=== PATIENT | male | born 2000 | race American Indian/Alaskan Native ===

== ENCOUNTER 2019-08-31 22:44 | Emergency (ER) | payer OTHER ==
[2019-09-01] MEDS ORDERED: SODIUM CHLORIDE 0.9% 1000 ML 1,000 ML IV ONE (00:07)
--- NOTE | 2019-09-01 00:17 | Emergency Department Report ---
ED Seizure HPI - General Chief Complaint: Seizure Stated Complaint: SEIZURE Time Seen by Provider: 09/01/19 00:07 Source: family, EMS Mode of arrival: Stretcher Limitations: No Limitations - History of Present Illness Initial Comments: Bertha is a 19-year-old male with history of depression who presents with seizure activity at home. Today he started new medication Wellbutrin XL. This medication was prescribed to him by his [facility] physician on [facility]. Mother heard a thump. When she came into his room, she discovered Bertha to be on the ground with blood coming from his mouth and eyes closed shaking his extremities. The seizure lasted 30 seconds. He denies any pain at this time. No previous history of seizure. MD Complaint: possible seizure -: This evening Description of Episode: loss of consciousness -: second(s) (30) Witnessed:: Yes Trauma: No Seizure History: none Place: home Possible Precipitating Event: medication (Wellbutrin) Associated Symptoms: denies other symptoms Treatments Prior to Arrival: none - Related Data Allergies Allergy/AdvReac Type Severity Reaction Status Date / Time No Known Allergies Allergy Unverified 08/31/19 23:13 ED Review of Systems ROS: Stated complaint: SEIZURE Other details as noted in HPI Comment: All other systems reviewed and negative Constitutional: denies: fever, malaise Respiratory: denies: cough Cardiovascular: denies: chest pain Gastrointestinal: denies: abdominal pain, nausea, vomiting Neurological: denies: headache ED Past Medical Hx - Past Medical History Previous Medical History?: Yes Additional medical history: depression - Surgical History Past Surgical History?: No - Social History Smoking Status: Never Smoker Substance Use Type: None ED Physical Exam - General Limitations: No Limitations General appearance: alert, in no apparent distress, other (GCS 15) - Head Head exam: Present: atraumatic, normocephalic - Eye Eye exam: Present: normal appearance - ENT ENT exam: Present: mucous membranes moist - Neck Neck exam: Present: normal inspection, full ROM. Absent: tenderness, meningismus - Respiratory Respiratory exam: Present: normal lung sounds bilaterally. Absent: respiratory distress, wheezes, rales, rhonchi - Cardiovascular Cardiovascular Exam: Present: regular rate, normal rhythm, normal heart sounds. Absent: systolic murmur, diastolic murmur, rubs, gallop - GI/Abdominal GI/Abdominal exam: Present: soft, normal bowel sounds. Absent: distended, tenderness, guarding, rebound - Rectal Rectal exam: Present: deferred - Extremities Exam Extremities exam: Present: normal inspection - Back Exam Back exam: Present: normal inspection - Neurological Exam Neurological exam: Present: alert, oriented X3, CN II-XII intact, normal gait. Absent: motor sensory deficit - Expanded Neurological Exam Expanded Patient oriented to: Present: person, place, time Speech: Present: fluid speech Cranial nerves: EOM's Intact: Normal, Gag Reflex: Normal Cerebellar function: Finger to Nose: Normal Upper motor neuron: George Neglect: Normal Sensory exam: Upper Extremity Light Touch: Normal Motor strength exam: RUE: 5, LUE: 5, RLE: 5, LLE: 5 Best Eye Response ([place]): (4) open spontaneously Best Motor Response ([place]): (6) obeys commands Best Verbal Response ([place]): (5) oriented [place] Total: 15 - Psychiatric Psychiatric exam: Present: depressed, flat affect. Absent: homicidal ideation, suicidal ideation - Skin Skin exam: Present: warm, dry, intact, normal color. Absent: rash ED Course Vital Signs 08/31/19 23:10 Temperature 98.2 F Pulse Rate 117 H Respiratory 18 Rate Blood Pressure 146/91 [Left] O2 Sat by Pulse 100 Oximetry ED Medical Decision Making - Lab Data Result diagrams: 09/01/19 00:31 09/01/19 00:31 Laboratory Results - last 24 hr 09/01/19 09/01/19 09/01/19 00:31 00:31 00:31 WBC 11.1 H RBC 5.82 H Hgb 15.4 H Hct 48.8 H MCV 84 MCH 27 L MCHC 32 RDW 14.0 Plt Count 249 Lymph % (Auto) 11.8 L [place] % (Auto) 6.3 Eos % (Auto) 0.0 Baso % (Auto) 0.2 Lymph # 1.3 Mineral # 0.7 Eos # 0.0 Baso # 0.0 Seg Neutrophils % 81.7 H Seg Neutrophils # 9.1 H Sodium 140 Potassium 4.2 Chloride 101.0 Carbon Dioxide 24 Anion Gap 19 BUN 8 L Creatinine 1.0 Estimated GFR > 60 BUN/Creatinine Ratio 8 Glucose 90 Calcium 9.9 Total Bilirubin 0.30 AST 19 ALT 15 Alkaline Phosphatase 80 Total Protein 7.9 Albumin 4.9 Albumin/Globulin Ratio 1.6 Salicylates < 0.3 L Acetaminophen Plasma/Serum Alcohol 09/01/19 09/01/19 00:31 00:31 WBC RBC Hgb Hct MCV MCH MCHC RDW Plt Count Lymph % (Auto) Mineral % (Auto) Eos % (Auto) Baso % (Auto) Lymph # Mineral # Eos # Baso # Seg Neutrophils % Seg Neutrophils # Sodium Potassium Chloride Carbon Dioxide Anion Gap BUN Creatinine Estimated GFR BUN/Creatinine Ratio Glucose Calcium Total Bilirubin AST ALT Alkaline Phosphatase Total Protein Albumin Albumin/Globulin Ratio Salicylates Acetaminophen < 5.0 L Plasma/Serum Alcohol < 0.01 - EKG Data 09/01/19 00:22 EKG obtained 0018 Sinus tachycardia 100 bpm normal axis normal intervals no ST-T signs ischemia right bundle branch block pattern - Radiology Data Radiology results: report reviewed CT head without acute intracranial abnormality according to radiologist's impression - Medical Decision Making Bertha presents with possible first-time seizure. Upon literature review, seizure can occur with treatment doses and overdose of buproprion. I have asked Bertha if he intentionally overdose on the medication, he denies. Currently denies any suicidal homicidal ideation. I have examined the bottle of Wellbutrin which was filled today. Mother provided Bertha with his one dose of medication today at 3 PM. I have reviewed labs. Labs are within normal limits. Slight elevation of white blood cell count is to be expected with demarginalization in this setting. Prior to the seizure he was in his normal state of health today. He and his mother were both given seizure precautions. He was restricted to contact his [facility] physician today for further follow-up and neurology referral. I have advised to stop taking the medication Wellbutrin. Critical care attestation.: If time is entered above; I have spent that time in minutes in the direct care of this critically ill patient, excluding procedure time. ED Disposition Clinical Impression: First time seizure, History of depression, Medication adverse effect Disposition: DC-01 TO HOME OR SELFCARE Is pt being admited?: No Does the pt Need Aspirin: No Condition: Stable Instructions: New-Onset Seizure in Adults (ED) Additional Instructions: Your new depression medication can cause seizures. Please stop taking this medication. Please contact your [facility] physician today. You will need to be seen by a neurologist. Referrals: PRIMARY CARE, [Referring] - LOREN[facility]
[2019-09-01 00:57] LABS: Basophils % (Auto) 0.2 % (0.0-1.8); Hematocrit 48.8 % (35.5-45.6); Hemoglobin 15.4 gm/dl (11.8-15.2); Lymphocytes # (Auto) 1.3 K/mm3 (1.2-5.4); Lymphocytes % (Auto) 11.8 % (13.4-35.0); Mean Corpuscular HGB Conc 32 % (32-34); Mean Corpuscular Volume 84 fl (84-94); Monocytes # (Auto) 0.7 K/mm3 (0.0-0.8); Monocytes % (Auto) 6.3 % (0.0-7.3); Platelet Count 249 K/mm3 (140-440); Red Blood Count 5.82 M/mm3 (3.65-5.03)
--- NOTE | 2019-09-01 01:02 | Cat Scan Report ---
CT HEAD WITHOUT CONTRAST INDICATION : Seizure. TECHNIQUE: Axial, coronal and sagittal CT imaging was performed from the skull apex through the skul l base without contrast. All CT scans at this location are performed using CT dose reduction for ALA RA by means of automated exposure control. COMPARISON: None available. FINDINGS: PARENCHYMA: No mass, midline shift, hemorrhage, extraaxial collection or acute territorial infarctio n. VENTRICLES: Symmetric and normal in size. SOFT TISSUES: Soft tissues including the orbits appear normal. BONES: No acute osseous abnormality. SINUSES: No significant abnormality. ADDITIONAL FINDINGS: None. IMPRESSION: No acute intracranial abnormality. Signer Name: Can Dumont MD Signed: 09/01/2019 12:58 AM Workstation Name: [id number]
[2019-09-01 01:22] LABS: Alanine Aminotransferase 15 units/L (7-56); Albumin 4.9 g/dL (3.9-5); BUN/Creatinine Ratio 8; Blood Urea Nitrogen 8 mg/dL (9-20); Calcium 9.9 mg/dL (8.4-10.2); Hemolysis Index 19
[2019-09-01 05:53] VITALS: BP 119/72
== END 2019-09-01 03:12 | disposition home or self-care (01) ==
LOC: EDBD 22:44 → ED 22:44
DX: T43.295A Adverse effect of other antidepressants, initial encounter (principal); R56.9 Unspecified convulsions; F32.9 Major depressive disorder, single episode, unspecified; Y92.89 Other specified places as the place of occurrence of the external cause
CPT/HCPCS: 36415; 70450; 80053; 80320; 85025; 93005; 93010; G0480